=== PATIENT | male | born 1940 | race Caucasian/White ===

== ENCOUNTER 2016-06-19 09:28 | Outpatient (CLI) | payer MEDICARE, OTHER ==
[2013-02-18 01:57] VITALS: BP 105/67
== END 2016-06-19 09:30 ==
LOC: LAB 09:28
PROVIDERS: ATTEND Family Medicine
DX: Z51.81 Encounter for therapeutic drug level monitoring (principal); Z79.01 Long term (current) use of anticoagulants; Z86.718 Personal history of other venous thrombosis and embolism
CPT/HCPCS: 36415; 85610

== ENCOUNTER 2016-09-06 09:10 | Outpatient (CLI) | payer MEDICARE, OTHER ==
[2013-02-18 01:57] VITALS: BP 105/67
== END 2016-09-06 09:11 ==
LOC: LAB 09:10
PROVIDERS: ATTEND Family Medicine
DX: Z51.81 Encounter for therapeutic drug level monitoring (principal); Z79.01 Long term (current) use of anticoagulants
CPT/HCPCS: 36415; 85610

== ENCOUNTER 2016-10-11 09:12 | Outpatient (CLI) | payer MEDICARE, OTHER ==
[2013-02-18 01:57] VITALS: BP 105/67
== END 2016-10-11 09:13 ==
LOC: LAB 09:12
PROVIDERS: ATTEND Family Medicine
DX: Z51.81 Encounter for therapeutic drug level monitoring (principal); Z86.718 Personal history of other venous thrombosis and embolism; Z79.01 Long term (current) use of anticoagulants
CPT/HCPCS: 36415; 85610

== ENCOUNTER 2016-11-13 09:28 | Outpatient (CLI) | payer MEDICARE, OTHER ==
[2013-02-18 01:57] VITALS: BP 105/67
== END 2016-11-13 09:30 ==
LOC: LAB 09:28
PROVIDERS: ATTEND Family Medicine
DX: Z86.718 Personal history of other venous thrombosis and embolism (principal)
CPT/HCPCS: 36415; 85610

== ENCOUNTER 2016-11-29 09:15 | Outpatient (CLI) | payer MEDICARE, OTHER ==
[2013-02-18 01:57] VITALS: BP 105/67
== END 2016-11-29 09:16 ==
LOC: LAB 09:15
PROVIDERS: ATTEND Family Medicine
DX: Z86.718 Personal history of other venous thrombosis and embolism (principal)
CPT/HCPCS: 36415; 85610

== ENCOUNTER 2017-01-08 09:15 | Outpatient (CLI) | payer MEDICARE, OTHER ==
[2013-02-18 01:57] VITALS: BP 105/67
== END 2017-01-08 09:16 ==
LOC: LAB 09:15
PROVIDERS: ATTEND Family Medicine
DX: Z86.718 Personal history of other venous thrombosis and embolism (principal)
CPT/HCPCS: 36415; 85610

== ENCOUNTER 2017-02-07 09:22 | Outpatient (CLI) | payer MEDICARE, OTHER ==
[2013-02-18 01:57] VITALS: BP 105/67
== END 2017-02-07 09:23 ==
LOC: LAB 09:22
PROVIDERS: ATTEND Family Medicine
DX: I26.92 Saddle embolus of pulmonary artery without acute cor pulmonale (principal)
CPT/HCPCS: 36415; 85610

== ENCOUNTER 2017-03-15 09:06 | Outpatient (CLI) | payer MEDICARE, OTHER ==
[2013-02-18 01:57] VITALS: BP 105/67
== END 2017-03-15 09:07 ==
LOC: LAB 09:06
PROVIDERS: ATTEND Family Medicine
DX: I26.92 Saddle embolus of pulmonary artery without acute cor pulmonale (principal)
CPT/HCPCS: 36415; 85610

== ENCOUNTER 2017-04-09 09:25 | Outpatient (CLI) | payer MEDICARE, OTHER ==
[2013-02-18 01:57] VITALS: BP 105/67
== END 2017-04-09 09:26 ==
LOC: LAB 09:25
PROVIDERS: ATTEND Family Medicine
DX: I26.92 Saddle embolus of pulmonary artery without acute cor pulmonale (principal)
CPT/HCPCS: 36415; 85610

== ENCOUNTER → 2017-05-10 | Outpatient (CLI) | payer MEDICARE, OTHER ==
[2013-02-18 01:57] VITALS: BP 105/67
== END ==
LOC: LAB 09:29
PROVIDERS: ATTEND Family Medicine
DX: I26.92 Saddle embolus of pulmonary artery without acute cor pulmonale (principal)
CPT/HCPCS: 36415; 85610

== ENCOUNTER 2017-06-13 09:49 | Outpatient (CLI) | payer MEDICARE, OTHER ==
[2013-02-18 01:57] VITALS: BP 105/67
== END 2017-06-13 09:50 ==
LOC: LAB 09:49
PROVIDERS: ATTEND Family Medicine
DX: I26.92 Saddle embolus of pulmonary artery without acute cor pulmonale (principal)
CPT/HCPCS: 36415; 85610

== ENCOUNTER 2017-07-10 10:03 | Outpatient (CLI) | payer MEDICARE, OTHER ==
[2013-02-18 01:57] VITALS: BP 105/67
== END 2017-07-10 10:04 ==
LOC: LAB 10:03
PROVIDERS: ATTEND Family Medicine
DX: I26.92 Saddle embolus of pulmonary artery without acute cor pulmonale (principal)
CPT/HCPCS: 36415; 85610

== ENCOUNTER 2017-08-09 09:48 | Outpatient (CLI) | payer MEDICARE, OTHER ==
[2013-02-18 01:57] VITALS: BP 105/67
== END 2017-08-09 10:00 ==
LOC: LAB 09:48
PROVIDERS: ATTEND Family Medicine
DX: I26.92 Saddle embolus of pulmonary artery without acute cor pulmonale (principal)
CPT/HCPCS: 36415; 85610

== ENCOUNTER 2017-09-09 09:42 | Outpatient (CLI) | payer MEDICARE, OTHER ==
[2013-02-18 01:57] VITALS: BP 105/67
== END 2017-09-09 09:43 ==
LOC: LAB 09:42
PROVIDERS: ATTEND Family Medicine
DX: I26.92 Saddle embolus of pulmonary artery without acute cor pulmonale (principal)
CPT/HCPCS: 36415; 85610

== ENCOUNTER 2017-10-07 10:03 | Outpatient (CLI) | payer MEDICARE, OTHER ==
[2013-02-18 01:57] VITALS: BP 105/67
== END 2017-10-07 10:05 ==
LOC: LAB 10:03
PROVIDERS: ATTEND Family Medicine
DX: I26.92 Saddle embolus of pulmonary artery without acute cor pulmonale (principal)
CPT/HCPCS: 36415; 85610

== ENCOUNTER 2017-11-05 09:25 | Outpatient (CLI) | payer MEDICARE, OTHER ==
[2013-02-18 01:57] VITALS: BP 105/67
== END 2017-11-05 09:26 ==
LOC: LAB 09:25
PROVIDERS: ATTEND Family Medicine
DX: I26.92 Saddle embolus of pulmonary artery without acute cor pulmonale (principal)
CPT/HCPCS: 36415; 85610

== ENCOUNTER 2017-12-09 09:16 | Outpatient (CLI) | payer MEDICARE, OTHER ==
[2013-02-18 01:57] VITALS: BP 105/67
== END 2017-12-09 09:18 ==
LOC: LAB 09:16
PROVIDERS: ATTEND Family Medicine
DX: I26.92 Saddle embolus of pulmonary artery without acute cor pulmonale (principal)
CPT/HCPCS: 36415; 85610

== ENCOUNTER 2018-01-07 09:34 | Outpatient (CLI) | payer MEDICARE, OTHER ==
[2013-02-18 01:57] VITALS: BP 105/67
== END 2018-01-07 09:35 ==
LOC: LAB 09:34
PROVIDERS: ATTEND Family Medicine
DX: I26.92 Saddle embolus of pulmonary artery without acute cor pulmonale (principal)
CPT/HCPCS: 36415; 85610

== ENCOUNTER 2018-02-10 09:58 | Outpatient (CLI) | payer MEDICARE, OTHER ==
[2013-02-18 01:57] VITALS: BP 105/67
== END 2018-02-10 10:00 ==
LOC: LAB 09:58
PROVIDERS: ATTEND Family Medicine
DX: I26.92 Saddle embolus of pulmonary artery without acute cor pulmonale (principal)
CPT/HCPCS: 36415; 85610

== ENCOUNTER 2018-03-07 10:00 | Outpatient (CLI) | payer MEDICARE, OTHER ==
[2013-02-18 01:57] VITALS: BP 105/67
== END 2018-03-07 10:02 ==
LOC: LAB 10:00
PROVIDERS: ATTEND Family Medicine
DX: I26.92 Saddle embolus of pulmonary artery without acute cor pulmonale (principal)
CPT/HCPCS: 36415; 85610

== ENCOUNTER 2018-04-18 09:28 | Outpatient (CLI) | payer MEDICARE, OTHER ==
[2013-02-18 01:57] VITALS: BP 105/67
== END 2018-04-18 09:33 | disposition home or self-care (01) ==
LOC: LAB 09:28
PROVIDERS: ATTEND Family Medicine
DX: I26.92 Saddle embolus of pulmonary artery without acute cor pulmonale (principal)
CPT/HCPCS: 36415; 85610

== ENCOUNTER 2018-05-12 10:12 | Outpatient (CLI) | payer MEDICARE, OTHER ==
[2013-02-18 01:57] VITALS: BP 105/67
== END 2018-05-12 10:13 ==
LOC: LAB 10:12
PROVIDERS: ATTEND Family Medicine
DX: I26.92 Saddle embolus of pulmonary artery without acute cor pulmonale (principal)
CPT/HCPCS: 36415; 85610

== ENCOUNTER 2018-06-06 10:04 | Outpatient (CLI) | payer OTHER ==
[2013-02-18 01:57] VITALS: BP 105/67
== END 2018-06-06 10:09 ==
LOC: LAB 10:04
PROVIDERS: ATTEND Family Medicine
DX: I26.92 Saddle embolus of pulmonary artery without acute cor pulmonale (principal)
CPT/HCPCS: 36415; 85610

== ENCOUNTER 2018-07-07 13:23 | Outpatient (CLI) | payer OTHER ==
[2013-02-18 01:57] VITALS: BP 105/67
== END 2018-07-07 13:30 ==
LOC: LAB 13:23
PROVIDERS: ATTEND Family Medicine
DX: I26.92 Saddle embolus of pulmonary artery without acute cor pulmonale (principal)
CPT/HCPCS: 36415; 85610

== ENCOUNTER 2018-08-06 09:41 | Outpatient (CLI) | payer OTHER ==
[2013-02-18 01:57] VITALS: BP 105/67
== END 2018-08-06 09:42 ==
LOC: LAB 09:41
PROVIDERS: ATTEND Family Medicine
DX: I26.92 Saddle embolus of pulmonary artery without acute cor pulmonale (principal)
CPT/HCPCS: 36415; 85610

== ENCOUNTER 2018-09-04 10:29 | Outpatient (CLI) | payer OTHER ==
[2013-02-18 01:57] VITALS: BP 105/67
== END 2018-09-04 10:32 ==
LOC: LAB 10:29
PROVIDERS: ATTEND Family Medicine
DX: I26.92 Saddle embolus of pulmonary artery without acute cor pulmonale (principal)
CPT/HCPCS: 36415; 85610

== ENCOUNTER 2018-10-14 10:37 | Outpatient (CLI) | payer OTHER ==
[2013-02-18 01:57] VITALS: BP 105/67
== END 2018-10-14 10:40 ==
LOC: LAB 10:37
PROVIDERS: ATTEND Family Medicine
DX: I26.92 Saddle embolus of pulmonary artery without acute cor pulmonale (principal)
CPT/HCPCS: 36415; 85610

== ENCOUNTER 2018-11-06 09:58 | Outpatient (CLI) | payer OTHER ==
[2013-02-18 01:57] VITALS: BP 105/67
== END 2018-11-06 10:03 | disposition home or self-care (01) ==
LOC: LAB 09:58
PROVIDERS: ATTEND Family Medicine
DX: I26.92 Saddle embolus of pulmonary artery without acute cor pulmonale (principal)
CPT/HCPCS: 36415; 85610

== ENCOUNTER 2019-02-04 10:12 | Outpatient (CLI) | payer OTHER ==
[2013-02-18 01:57] VITALS: BP 105/67
== END 2019-02-04 10:14 ==
LOC: LAB 10:12
PROVIDERS: ATTEND Family Medicine
DX: I26.92 Saddle embolus of pulmonary artery without acute cor pulmonale (principal)
CPT/HCPCS: 36415; 85610

== ENCOUNTER 2019-03-10 09:50 | Outpatient (CLI) | payer OTHER ==
[2013-02-18 01:57] VITALS: BP 105/67
== END 2019-03-10 10:00 ==
LOC: LAB 09:50
PROVIDERS: ATTEND Family Medicine
DX: I26.92 Saddle embolus of pulmonary artery without acute cor pulmonale (principal)
CPT/HCPCS: 36415; 85610

== ENCOUNTER 2019-04-06 09:50 | Outpatient (CLI) | payer OTHER ==
[2013-02-18 01:57] VITALS: BP 105/67
== END 2019-04-06 09:55 ==
LOC: LAB 09:50
PROVIDERS: ATTEND Family Medicine
DX: I26.92 Saddle embolus of pulmonary artery without acute cor pulmonale (principal)
CPT/HCPCS: 36415; 85610

== ENCOUNTER 2019-05-07 10:14 | Outpatient (CLI) | payer OTHER ==
[2013-02-18 01:57] VITALS: BP 105/67
== END 2019-05-07 10:19 ==
LOC: LAB 10:14
PROVIDERS: ATTEND Family Medicine
DX: I26.92 Saddle embolus of pulmonary artery without acute cor pulmonale (principal)
CPT/HCPCS: 36415; 85610

== ENCOUNTER 2019-06-08 10:18 | Outpatient (CLI) | payer OTHER ==
[2013-02-18 01:57] VITALS: BP 105/67
== END 2019-06-08 10:23 ==
LOC: LAB 10:18
PROVIDERS: ATTEND Family Medicine
DX: I26.92 Saddle embolus of pulmonary artery without acute cor pulmonale (principal)
CPT/HCPCS: 36415; 85610